=== PATIENT | female | born 1965 | race American Indian/Alaskan Native ===

== ENCOUNTER 2020-06-21 09:53 | Inpatient (IN) | payer BC ==
--- NOTE | 2020-06-21 10:08 | Event Note ---
ED Screening Note Date of service: 06/21/20 ED Screening Note: Patient referred from PCP due to hypoxia. The patient has had cough and shortness of breath for 2 weeks, tested for Covid but does not have results, no chest pain, fever, loss of taste or smell or other symptoms. O2 ranging from 92 to 95% at rest during my evaluation. This initial assessment/diagnostic orders/clinical plan/treatment(s) is/are subject to change based on patients health status, clinical progression and re- assessment by fellow clinical providers in the ED. Further treatment and workup at subsequent clinical providers discretion. Patient/guardian urged not to elope from the ED as their condition may be serious if not clinically assessed and managed. Initial orders include: Labs, EKG, chest x-ray
[2020-06-21 10:45] LABS: Basophils % (Auto) 0.5 % (0.0-1.8); Hematocrit 36.9 % (30.3-42.9); Hemoglobin 12.3 gm/dl (10.1-14.3); Lymphocytes % (Auto) 10.9 % (13.4-35.0); Mean Corpuscular HGB Conc 33 % (30-34); Mean Corpuscular Volume 82 fl (79-97); Monocytes # (Auto) 0.5 K/mm3 (0.0-0.8); Monocytes % (Auto) 5.1 % (0.0-7.3); Platelet Count 232 K/mm3 (140-440); Red Blood Count 4.52 M/mm3 (3.65-5.03); Red Cell Distribution Width 14.5 % (13.2-15.2)
--- NOTE | 2020-06-21 10:45 | XRay Report ---
CHEST 2 VIEWS INDICATION: sob. COMPARISON: 11/06/2015 FINDINGS: Support devices: None. Heart: Within normal limits. Lungs/pleura: Bibasilar airspace opacities are identified. The upper lung zones are clear. No pleura l effusion or pneumothorax. Additional findings: None. IMPRESSION: Bibasilar airspace opacities concerning for aspiration or atypical pneumonia. Signer Name: Cuco Goodman Jr, MD Signed: 06/21/2020 10:40 AM Workstation Name: [id number]
[2020-06-21 11:05] LABS: BUN/Creatinine Ratio 10; Blood Urea Nitrogen 8 mg/dL (7-17); Calcium 8.4 mg/dL (8.4-10.2); Hemolysis Index 4
--- NOTE | 2020-06-21 12:35 | Emergency Department Report ---
ED Shortness of Breath HPI - General Chief Complaint: Dyspnea/Respdistress Stated Complaint: OXYGEN LEVEL IS LOW Time Seen by Provider: 06/21/20 11:57 Source: patient Mode of arrival: Ambulatory Limitations: No Limitations - History of Present Illness Initial Comments: Chief complaint "I just cannot breathe." HPI: A 55-year-old female with history of hypertension and medication noncompliance who presents with severe shortness of breath for the last week. Her symptoms started off with "a bad cold". Patient had chills nonproductive cough body aches, loss of sense of taste and smell. All symptoms began last week. and son were both sick. 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 She denies recent travel.Last known COVID-19 exposure from coworker was in March. Malik carmichael was evaluated by PCP Dr. Ash Rice this morning. He performed COVID-19 test. He referred patient to the emergency department due to low oxygen level. Patient does not smoke tobacco. She does not use alcohol. Patient states that she does not take hypertension medication because she is "[address] headed". Family history includes both parents and sisters with hypertension. No known history of diabetes cardiac disease stroke in the family. Patient works for the department of [employer]. Complaint: shortness of breath, cough -: Gradual, week(s) (Over 1 week ago) Severity: severe Consistency: constant Improves With: rest Worsens With: exertion Known History Of: other (Untreated hypertension) Context: recent URI, other (Multiple sick contacts at home) Associated Symptoms: fever, cough, other (Body aches loss of taste loss of smell) - Related Data Home Medications Medication Instructions Recorded Confirmed Last Taken No Known Home Medications [No 06/21/20 06/21/20 Unknown Reported Home Medications] Allergies Allergy/AdvReac Type Severity Reaction Status Date / Time No Known Allergies Allergy Verified 06/21/20 12:35 ED Review of Systems ROS: Stated complaint: OXYGEN LEVEL IS LOW Other details as noted in HPI Comment: All other systems reviewed and negative Constitutional: chills, fever, malaise ENT: denies: throat pain Respiratory: cough, shortness of breath Cardiovascular: denies: chest pain Gastrointestinal: denies: abdominal pain, nausea, vomiting, diarrhea Musculoskeletal: myalgia Neurological: denies: headache ED Past Medical Hx - Past Medical History Previous Medical History?: Yes Hx Hypertension: Yes - Surgical History Past Surgical History?: No - Social History Smoking Status: Never Smoker Substance Use Type: None - Medications Home Medications: Home Medications Medication Instructions Recorded Confirmed Last Taken Type No Known Home Medications [No 06/21/20 06/21/20 Unknown History Reported Home Medications] ED Physical Exam - General Limitations: No Limitations General appearance: alert, in no apparent distress, other (Severe shortness of breath with effort with ambulating to treatment room. Patient only able to take 3 steps at a time before needing to rest.) - Head Head exam: Present: atraumatic, normocephalic - Eye Eye exam: Present: normal appearance - ENT ENT exam: Present: mucous membranes moist - Neck Neck exam: Present: normal inspection, full ROM - Respiratory Respiratory exam: Present: normal lung sounds bilaterally. Absent: respiratory distress, wheezes, rhonchi, stridor - Cardiovascular Cardiovascular Exam: Present: regular rate, normal rhythm, normal heart sounds. Absent: systolic murmur, diastolic murmur, rubs, gallop - GI/Abdominal GI/Abdominal exam: Present: soft, normal bowel sounds. Absent: distended, tenderness, guarding, rebound - Extremities Exam Extremities exam: Present: normal inspection - Neurological Exam Neurological exam: Present: alert, oriented X3 - Psychiatric Psychiatric exam: Present: normal affect, normal mood - Skin Skin exam: Present: warm, dry, intact, normal color. Absent: rash ED Course Vital Signs 06/21/20 06/21/20 06/21/20 10:07 12:12 12:13 Temperature 99.1 F Pulse Rate 101 H 83 Respiratory 24 26 H 18 Rate Blood Pressure 194/107 Blood Pressure 186/83 [Right] O2 Sat by Pulse 92 93 Oximetry 06/21/20 06/21/20 06/21/20 12:39 12:56 14:04 Temperature Pulse Rate 88 94 H 92 H Respiratory 28 H 28 H Rate Blood Pressure 167/97 Blood Pressure 181/105 173/115 [Right] O2 Sat by Pulse 95 97 Oximetry 06/21/20 14:56 Temperature Pulse Rate 96 H Respiratory 18 Rate Blood Pressure Blood Pressure 166/96 [Right] O2 Sat by Pulse 97 Oximetry ED Medical Decision Making - Lab Data Result diagrams: 06/21/20 10:15 06/21/20 10:15 - Radiology Data Radiology results: report reviewed, image reviewed CHEST 2 VIEWS INDICATION: sob. COMPARISON: 11/06/2015 FINDINGS: Support devices: None. Heart: Within normal limits. Lungs/pleura: Bibasilar airspace opacities are identified. The upper lung zones are clear. No pleural effusion or pneumothorax. Additional findings: None. IMPRESSION: Bibasilar airspace opacities concerning for aspiration or atypical pneumonia CTA CHEST WITH IV CONTRAST INDICATION: Hypoxia, elevated d-dimer. TECHNIQUE: Axial CT images were obtained through the chest after injection of 100 cc Omnipaque 350 IV contrast. 3 plane MIP reconstructions were produced. All CT scans at this location are performed using CT dose reduction for ALARA by means of automated exposure control. COMPARISON: 2 views of the chest from earlier today. FINDINGS: PULMONARY ARTERIES: No pulmonary emboli. AORTA AND ARTERIES: No significant abnormality. HEART: No significant abnormality. MEDIASTINUM: No significant abnormality. LUNGS: Bilateral ground glass opacities and consolida tions are seen with bilateral lower lobe predominance. No suspicious nodule or mass. No pneumothorax or pleural effusion. ADDITIONAL FINDINGS: None. UPPER ABDOMEN: No acute findings. BONES: No significant osseous abnormality. IMPRESSION: 1. No CT evidence for pulmonary embolism. 2. Bilateral pneumonia, possibly of viral etiology. Please correlate with the clinical findings. - Medical Decision Making Acute respiratory failure with significant hypoxia on exertion. Patient has mild hypoxia 90% at rest. Severe hypoxia with slow ambulation, oxygen saturation 82% on room air. I personally observed patient ambulating. She was only able to take 3 steps prior to needing a rest. Suspected COVID-19 infection: Differential diagnosis includes pulmonary embolism with elevated D-dimer, acute heart failure with history of severe hypertension untreated Hypertension addressed with p.o. medication amlodipine. Repeat blood pressure 166/82 after treatment. Critical care attestation.: If time is entered above; I have spent that time in minutes in the direct care of this critically ill patient, excluding procedure time. ED Disposition Clinical Impression: Acute respiratory failure with hypoxia, Hypertensive urgency, Suspected COVID- 19 virus infection, Multifocal pneumonia Disposition: OP ADMIT IP TO THIS HOSP Is pt being admited?: No Does the pt Need Aspirin: No Condition: Stable
[2020-06-21] MEDS ORDERED: amLODIPine 5 MG TAB PO ONE (12:52)
[2020-06-21] MEDS ORDERED: cefTRIAXone/NS 2 GM/100 ML 2 GM/100 ML BAG IV ONE (12:54)
[2020-06-21] MEDS ORDERED: AZITHROMYCIN/NS 500 MG/250 ML 500 MG/250 ML BAG IV ONE (12:54)
[2020-06-21] MEDS ORDERED: dexAMETHasone 20 MG/5 ML VIAL IV ONE (13:07)
--- NOTE | 2020-06-21 13:25 | History and Physical Report ---
History of Present Illness Chief complaint: I cannot breathe History of present illness: 55 YO Female with Obesity Hypoventilation Syndrome, HTN presents to ED for evaluation. Patient reports "I just cannot breathe". Patient states that she has experienced malaise, subjective fever, fatigue, body aches, loss of sense of smell, loss of sense of taste, nasal congestion over the past week with worsening symptoms over the same timeframe. Patient transported to [facility] via private vehicle for further care and evaluation of the aforementioned symptoms. The patient was seen and evaluated in the emergency department. All lab and imaging studies reviewed. The patient was found to have a pulse oximetry of 86% on room air with exertion which is consistent with acute hypoxemic respiratory failure. Chest x-ray revealed bilateral pneumonia. Patient admitted to medical floor and initiated on pneumonia protocol as well as coronavirus protocol. Patient denies chills, chest pain, palpitations, skin rash. Patient ack nowledges recent ill contacts with her and her son. Patient uncertain of her coronavirus exposure. No prior admission for review. No medication listed at time of admission for reconciliation. Past History Past Medical History: hypertension Past Surgical History: No surgical history, Other (Reviewed) Social history: , lives with family. denies: smoking, alcohol abuse Family history: diabetes, hypertension Medications and Allergies Allergies Allergy/AdvReac Type Severity Reaction Status Date / Time No Known Allergies Allergy Verified 06/21/20 12:35 Home Medications Medication Instructions Recorded Confirmed Last Taken Type No Known Home Medications [No 06/21/20 06/21/20 Unknown History Reported Home Medications] Active Meds: Active Medications Azithromycin (Zithromax/Ns) 500 mg in 250 mls @ 250 mls/hr IV ONCE ONE; Protocol Stop: 06/21/20 13:53 Review of Systems Constitutional: fever, fatigue, weakness, malaise Ears, nose, mouth and throat: no ear pain, no ear discharge, no tinnitis, no decreased hearing, no nose pain, no nasal congestion Breasts: no change in shape, no swelling Cardiovascular: shortness of breath, no orthopnea, no palpitations, no rapid/irregular heart beat Respiratory: shortness of breath, no excessive sputum, no pleurisy Gastrointestinal: no abdominal pain, no nausea, no vomiting, no diarrhea Genitourinary Female: no pelvic pain, no flank pain, no dysuria, no urinary frequency, no urgency Rectal: no pain, no incontinence, no bleeding Musculoskeletal: no neck stiffness, no neck pain, no arm numbness/tingling, no low back pain, no shooting leg pain, no leg numbness/tingling Integumentary: no rash, no pruritis, no redness, no sores, no wounds Neurological: no transient paralysis, no paralysis, no weakness, no parathesias, no numbness Psychiatric: no anxiety, no change in sleep habits, no insomnia, no change in appetite, no change in libido Endocrine: no cold intolerance, no polydipsia, no nocturia, no flushing Hematologic/Lymphatic: no easy bruising, no easy bleeding, no lymphedema Allergic/Immunologic: no urticaria, no allergic rhinitis, no anaphylaxis Exam - Constitutional Vitals: Temp Pulse Resp BP Pulse Ox 99.1 F 94 H 28 H 167/97 95 06/21/20 10:07 06/21/20 12:56 06/21/20 12:39 06/21/20 12:56 06/21/20 12:39 General appearance: Present: mild distress, obese - EENT Eyes: Present: PERRL ENT: hearing intact, clear oral mucosa - Neck Neck: Present: supple, normal ROM - Respiratory Respiratory effort: labored, accessory muscle use Respiratory: bilateral: diminished, rhonchi - Cardiovascular Heart Sounds: Present: S1 & S2. Absent: rub, click - Extremities Extremities: pulses symmetrical, No edema Peripheral Pulses: within normal limits - Abdominal General gastrointestinal: Present: soft, non-tender, non-distended, normal bowel sounds Female genitourinary: Present: normal - Integumentary Integumentary: Present: clear, warm, dry - Musculoskeletal Musculoskeletal: gait normal, strength equal bilaterally - Psychiatric Psychiatric: appropriate mood/affect, intact judgment & insight - Neurologic Neurologic: CNII-XII intact, moves all extremities Results - Labs CBC & Chem 7: 06/21/20 10:15 06/21/20 10:15 Labs: Abnormal lab results 06/21/20 06/21/20 06/21/20 Range/Units 10:15 10:15 11:49 MCH 27 L (28-32) pg Lymph % (Auto) 10.9 L (13.4-35.0) % Lymph # (Auto) 1.0 L (1.2-5.4) K/mm3 Seg Neutrophils % 83.5 H (40.0-70.0) % Seg Neutrophils # 8.1 H (1.8-7.7) K/mm3 D-Dimer 1264.70 H (0-234) ng/mlDDU Potassium 3.1 L (3.6-5.0) mmol/L Glucose 125 H (65-100) mg/dL Ferritin (10.0-200.0) ng/mL Lactate Dehydrogenase (91-180) units/L C-Reactive Protein 15.60 H (0.00-1.30) mg/dL 06/21/20 06/21/20 Range/Units 11:49 11:49 MCH (28-32) pg Lymph % (Auto) (13.4-35.0) % Lymph # (Auto) (1.2-5.4) K/mm3 Seg Neutrophils % (40.0-70.0) % Seg Neutrophils # (1.8-7.7) K/mm3 D-Dimer (0-234) ng/mlDDU Potassium (3.6-5.0) mmol/L Glucose (65-100) mg/dL Ferritin 1421.0 H (10.0-200.0) ng/mL Lactate Dehydrogenase 527 H (91-180) units/L C-Reactive Protein (0.00-1.30) mg/dL Assessment and Plan - Patient Problems (1) Acute respiratory failure with hypoxia Current Visit: Yes Status: Acute Plan to address problem: Supplemental oxygen, pulse oximetry, nebulizer therapy, chest x-ray, pulmonary toilet. (2) Pneumonia Current Visit: Yes Status: Acute Plan to address problem: Pneumonia protocol: Chest x-ray, CBC, BMP, IV antibiotic therapy, supplemental oxygen, nebulizer therapy, pulse oximetry, blood culture. (3) Suspected COVID-19 virus infection Current Visit: Yes Status: Acute Plan to address problem: Coronavirus protocol: Contact precautions, isolation precautions, IV steroid therapy, IV antibiotic therapy, prone positioning while in bed, pulmonary toilet. (4) Obesity hypoventilation syndrome Current Visit: Yes Status: Acute Plan to address problem: Balanced diet, increase physical activity at discharge, outpatient pulmonary follow-up for sleep study. (5) Hypertensive urgency Current Visit: Yes Status: Acute Plan to address problem: Monitor blood pressure every shift, continue medical management, IV hydralazine every 6 hours as needed for systolic blood pressure greater than 165. (6) DVT prophylaxis Current Visit: Yes Status: Acute Plan to address problem: SCDs bilateral lower extremities while in bed, prophylactic anticoagulation.
[2020-06-21] MEDS ORDERED: ACETAMINOPHEN 325 MG TAB PO PRN (13:26)
[2020-06-21] MEDS ORDERED: ONDANSETRON 4 MG/2 ML INJ IV PRN (13:26)
[2020-06-21] MEDS ORDERED: ALBUTEROL 2.5 MG/3 ML NEBU IH PRN (13:26)
--- NOTE | 2020-06-21 14:06 | Cat Scan Report ---
CTA CHEST WITH IV CONTRAST INDICATION: Hypoxia, elevated d-dimer. TECHNIQUE: Axial CT images were obtained through the chest after injection of 100 cc Omnipaque 350 IV contrast. 3 plane MIP reconstructions were produced. All CT scans at this location are performed using CT dose reduction for ALARA by means of automated exposure control. COMPARISON: 2 views of the chest from earlier today. FINDINGS: PULMONARY ARTERIES: No pulmonary emboli. AORTA AND ARTERIES: No significant abnormality. HEART: No significant abnormality. MEDIASTINUM: No significant abnormality. LUNGS: Bilateral ground glass opacities and consolidations are seen with bilateral lower lobe predomi nance. No suspicious nodule or mass. No pneumothorax or pleural effusion. ADDITIONAL FINDINGS: None. UPPER ABDOMEN: No acute findings. BONES: No significant osseous abnormality. IMPRESSION: 1. No CT evidence for pulmonary embolism. 2. Bilateral pneumonia, possibly of viral etiology. Please correlate with the clinical findings. Signer Name: Eleuterio Murcia MD Signed: 06/21/2020 2:01 PM Workstation Name: [id number]
[2020-06-21] MEDS: CHOLECALCIFEROL (VIT D3) 1000 UNIT (25 mcg) TAB PO SCH (16:00)
--- NOTE | 2020-06-21 16:57 | Consultation ---
History of Present Illness - Reason for Consult Consult date: 06/21/20 - History of Present Illness 55-year-old female past medical history obesity, hypertension brought to the hospital with shortness of breath. She also complains of associated malaise, fevers, fatigue, myalgias, dysgeusia and anosmia. This began approximate 1 week prior to admission and has been worsening since onset. She is found to hypoxic to 86% on room air on admission she is unsure if she has had any specific Covid exposures, however she notes her and son have been ill recently. Afebrile with a normal white count. Renal function normal. Procalcitonin normal. Currently on ceftriaxone and azithromycin. No cultures were reviewed. Covid testing pending. Imaging personally reviewed: Chest CTA: No pulmonary embolism, bilateral pneumonia. Review of systems: Deferred due to PPE conservation strategy. Past History Past Medical History: hypertension Past Surgical History: No surgical history, Other (Reviewed) Social history: , lives with family. denies: smoking, alcohol abuse Family history: diabetes, hypertension Medications and Allergies Allergies Allergy/AdvReac Type Severity Reaction Status Date / Time No Known Allergies Allergy Verified 06/21/20 12:35 Home Medications Medication Instructions Recorded Confirmed Last Taken Type No Known Home Medications [No 06/21/20 06/21/20 Unknown History Reported Home Medications] Active Meds: Active Medications Acetaminophen (Acetaminophen 325 Mg Tab) 650 mg PO Q4H PRN PRN Reason: Pain MILD(1-3)/Fever >100.5/SMITH Albuterol (Albuterol 2.5 Mg/3 Ml Nebu) 2.5 mg IH Q4HRT PRN PRN Reason: Shortness Of Breath Amlodipine Besylate (Aml[facility]ipine 10 Mg Tab) [facility] Ascorbic Acid (Ascorbic Acid 500 Mg Tab) 500 mg PO BID BROOKS Cholecalciferol (Cholecalciferol (Vit D3) 1000 Unit (25 Mcg) Tab) 1,000 unit PO QDAY [facility] Last Admin: 06/21/20 16:00 Dose: 1,000 unit Documented by: Famotidine (Famotidine 10 Mg Tab) 10 mg PO BID BROOKS Heparin Sodium (Porcine) (Heparin 5,000 Unit/1 Ml Vial) 5,000 unit SUB-Q Q12HR BROOKS Hydralazine HCl (Hydralazine 20 Mg/1 Ml Inj) 10 mg IV Q8H PRN PRN Reason: Hypertension Hydrochlorothiazide (Hydrochlorothiazide 12.5 Mg Cap) 12.5 mg PO QDAY [facility]OO[facility] Ceftriaxone Sodium (Rocephin/Ns 2 Gm/100 Ml) 2 gm in 100 mls @ 200 mls/hr IV Q24HR BROOKS; Protocol Azithromycin (Zithromax/Ns) 500 mg in 250 mls @ 250 mls/hr IV Q24HR BROOKS; Protocol Stop: 06/25/20 10:59 Methylprednisolone Sodium Succinate (Methylprednisolone Sod Succinate 40 Mg/1 Ml Inj) 40 mg IV Q8HR BROOKS Ondansetron HCl (Ondansetron 4 Mg/2 Ml Inj) 4 mg IV Q8H PRN PRN Reason: Nausea And Vomiting Sodium Chloride (Sodium Chloride 0.9% 10 Ml Flush Syringe) 10 ml IV BID BROOKS Sodium Chloride (Sodium Chloride 0.9% 10 Ml Flush Syringe) 10 ml IV PRN PRN PRN Reason: LINE FLUSH Zinc Sulfate (Zinc Sulfate 220 Mg Cap) 220 mg PO BID BROOKS Physical Examination - Physical Exam Narrative exam: Physical exam deferred due to PPE conservation strategy. Please refer to primary team's note. - Constitutional Vitals: Vital Signs Temp Pulse Resp BP Pulse Ox 99.1 F 96 H 18 166/96 97 06/21/20 10:07 06/21/20 14:56 06/21/20 14:56 06/21/20 14:56 06/21/20 14:56 Temperature -Last 24 Hours Temperature 99.1 F Results - Labs CBC & Chem 7: 06/21/20 10:15 06/21/20 10:15 Labs: Abnormal lab results 06/21/20 06/21/20 06/21/20 Range/Units 10:15 10:15 11:49 MCH 27 L (28-32) pg Lymph % (Auto) 10.9 L (13.4-35.0) % Lymph # (Auto) 1.0 L (1.2-5.4) K/mm3 Seg Neutrophils % 83.5 H (40.0-70.0) % Seg Neutrophils # 8.1 H (1.8-7.7) K/mm3 D-Dimer 1264.70 H (0-234) ng/mlDDU Potassium 3.1 L (3.6-5.0) mmol/L Glucose 125 H (65-100) mg/dL Ferritin (10.0-200.0) ng/mL Lactate Dehydrogenase (91-180) units/L C-Reactive Protein 15.60 H (0.00-1.30) mg/dL 06/21/20 06/21/20 Range/Units 11:49 11:49 MCH (28-32) pg Lymph % (Auto) (13.4-35.0) % Lymph # (Auto) (1.2-5.4) K/mm3 Seg Neutrophils % (40.0-70.0) % Seg Neutrophils # (1.8-7.7) K/mm3 D-Dimer (0-234) ng/mlDDU Potassium (3.6-5.0) mmol/L Glucose (65-100) mg/dL Ferritin 1421.0 H (10.0-200.0) ng/mL Lactate Dehydrogenase 527 H (91-180) units/L C-Reactive Protein (0.00-1.30) mg/dL Assessment and Plan Cultures: COVID-19 pending A/P: 55-year-old female past medical history obesity, hypertension admitted as Covid PUI with bilateral pneumonia. #Acute hypoxic respiratory failure: 86% on room air on admission. Likely secondary bilateral pneumonia. #Bilateral pneumonia: Possible Covid, awaiting testing. Normal procalcitonin. #Obesity Recs: -Follow-up Covid PCR -If Covid positive and hypoxic and requiring oxygen recommend dexamethasone and remdesivir. -Stopped empiric antibiotics and normal procalcitonin. -Anticoagulation per hospital protocol Thank you for the consult, we will continue to follow. MD Kevyn Romano [facility] O: [phone] F: [phone]
[2020-06-21] MEDS: methylPREDNISolone Sod Succinate 40 MG/1 ML INJ IV SCH (22:10)
[2020-06-21] MEDS: ZINC SULFATE 220 MG CAP PO SCH (22:11)
[2020-06-21] MEDS: HEPARIN 5,000 UNIT/1 ML VIAL SUB-Q SCH (22:11)
[2020-06-21] MEDS: ASCORBIC ACID 500 MG TAB PO SCH (22:11)
[2020-06-21] MEDS: FAMOTIDINE 10 MG TAB PO SCH (22:13)
[2020-06-22] MEDS: methylPREDNISolone Sod Succinate 40 MG/1 ML INJ IV SCH ×3 (05:47→21:43)
[2020-06-22 06:24] LABS: Basophils % (Auto) 0.3 % (0.0-1.8); Hematocrit 36.4 % (30.3-42.9); Lymphocytes # (Auto) 0.6 K/mm3 (1.2-5.4); Lymphocytes % (Auto) 8.9 % (13.4-35.0); Mean Corpuscular HGB Conc 33 % (30-34); Mean Corpuscular Volume 83 fl (79-97); Monocytes # (Auto) 0.3 K/mm3 (0.0-0.8); Monocytes % (Auto) 4.5 % (0.0-7.3); Platelet Count 262 K/mm3 (140-440); Red Cell Distribution Width 14.3 % (13.2-15.2)
[2020-06-22 06:53] LABS: BUN/Creatinine Ratio 15; Blood Urea Nitrogen 12 mg/dL (7-17); Calcium 8.9 mg/dL (8.4-10.2); Hemolysis Index 0
--- NOTE | 2020-06-22 09:02 | Progress Note ---
Assessment and Plan Assessment and plan: 55-year-old female past medical history obesity, hypertension admitted as Covid PUI with bilateral pneumonia. Acute hypoxic respiratory failure. Patient was noted to have saturation of 86% on room air on admission. Etiology secondary to bilateral pneumonia. Bilateral pneumonia. Covid PCR pending Obesity. 06/22/2020. Follow-up Covid PCR. If Covid positive and hypoxic, we will start dexamethasone and remdesivir. ID consulted and stopped empiric antibiotics given normal procalcitonin. Trend inflammatory markers as needed. History Interval history: 5-year-old female past medical history obesity, hypertension brought to the hospital with shortness of breath. She also complains of associated malaise, fevers, fatigue, myalgias, dysgeusia and anosmia. This began approximate 1 week prior to admission and has been worsening since onset. She is found to hypoxic to 86% on room air on admission she is unsure if she has had any specific Covid exposures, however she notes her and son have been ill recently. Afebrile with a normal white count. Renal function normal. Procalcitonin normal. Currently on ceftriaxone and azithromycin. No cultures were reviewed. Covid testing pending. Imaging personally reviewed: Chest CTA: No pulmonary embolism, bilateral pneumonia. Hospitalist Physical - Constitutional Vitals: Temp Pulse Resp BP Pulse Ox 98.0 F 86 18 136/82 95 06/22/20 05:54 06/22/20 05:54 06/22/20 05:54 06/22/20 05:54 06/22/20 05:54 General appearance: Present: mild distress, obese - EENT Eyes: Present: PERRL, EOM intact ENT: hearing intact, clear oral mucosa, dentition normal - Neck Neck: Present: supple, normal ROM - Respiratory Respiratory effort: normal Respiratory: bilateral: CTA - Cardiovascular Rhythm: regular Heart Sounds: Present: S1 & S2. Absent: gallop, rub - Extremities Extremities: no ischemia, No edema, Full ROM - Abdominal General gastrointestinal: soft, non-tender, non-distended, normal bowel sounds - Integumentary Integumentary: Present: clear, warm, dry - Neurologic Neurologic: CNII-XII intact, moves all extremities Results - Labs CBC & Chem 7: 06/22/20 05:48 06/22/20 05:48 Labs: Laboratory Last Values WBC 6.9 K/mm3 (4.5-11.0) 06/22/20 05:48 RBC 4.40 M/mm3 (3.65-5.03) 06/22/20 05:48 Hgb 12.0 gm/dl (10.1-14.3) 06/22/20 05:48 Hct 36.4 % (30.3-42.9) 06/22/20 05:48 MCV 83 fl (79-97) 06/22/20 05:48 MCH 27 pg (28-32) L 06/22/20 05:48 MCHC 33 % (30-34) 06/22/20 05:48 RDW 14.3 % (13.2-15.2) 06/22/20 05:48 Plt Count 262 K/mm3 (140-440) 06/22/20 05:48 Lymph % (Auto) 8.9 % (13.4-35.0) L 06/22/20 05:48 [place] % (Auto) 4.5 % (0.0-7.3) 06/22/20 05:48 Eos % (Auto) 0.0 % (0.0-4.3) 06/22/20 05:48 Baso % (Auto) 0.3 % (0.0-1.8) 06/22/20 05:48 Lymph # (Auto) 0.6 K/mm3 (1.2-5.4) L 06/22/20 05:48 [place] # (Auto) 0.3 K/mm3 (0.0-0.8) 06/22/20 05:48 Eos # (Auto) 0.0 K/mm3 (0.0-0.4) 06/22/20 05:48 Baso # (Auto) 0.0 K/mm3 (0.0-0.1) 06/22/20 05:48 Seg Neutrophils % 86.3 % (40.0-70.0) H 06/22/20 05:48 Seg Neutrophils # 5.9 K/mm3 (1.8-7.7) 06/22/20 05:48 D-Dimer 1264.70 ng/mlDDU (0-234) H 06/21/20 11:49 Sodium 141 mmol/L (137-145) 06/22/20 05:48 Potassium 3.7 mmol/L (3.6-5.0) 06/22/20 05:48 Chloride 102.0 mmol/L (98-107) 06/22/20 05:48 Carbon Dioxide 29 mmol/L (22-30) 06/22/20 05:48 Anion Gap 14 mmol/L 06/22/20 05:48 BUN 12 mg/dL (7-17) 06/22/20 05:48 Creatinine 0.8 mg/dL (0.6-1.2) 06/22/20 05:48 Estimated GFR > 60 ml/min 06/22/20 05:48 BUN/Creatinine Ratio 15 % 06/22/20 05:48 Glucose 246 mg/dL (65-100) H 06/22/20 05:48 Calcium 8.9 mg/dL (8.4-10.2) 06/22/20 05:48 Ferritin 1421.0 ng/mL (10.0-200.0) H 06/21/20 11:49 Lactate Dehydrogenase 527 units/L (91-180) H 06/21/20 11:49 C-Reactive Protein 15.60 mg/dL (0.00-1.30) H 06/21/20 10:15 NT-Pro-B Natriuret Pep 164.0 pg/mL (0-900) 06/21/20 12:16 Procalcitonin 0.08 ng/mL (<0.15) 06/21/20 11:49 Madden/IV: Voiding Method Toilet Active Medications - Current Medications Current Medications: Generic Name Dose Route Start Last Admin Trade Name Freq PRN Reason Stop Dose Admin Acetaminophen 650 mg 06/21/20 13:26 Acetaminophen 325 Mg Tab PO Q4H PRN Pain MILD(1-3)/Fever >100.5/SMITH Albuterol 2.5 mg 06/21/20 13:26 Albuterol 2.5 Mg/3 Ml Nebu IH Q4HRT PRN Shortness Of Breath Amlodipine Besylate 10 mg 06/22/20 10:00 Amlodipine 10 Mg Tab PO QDAY BROOKS Ascorbic Acid 500 mg 06/21/20 22:00 06/21/20 22:11 Ascorbic Acid 500 Mg Tab PO 500 mg BID BROOKS Administration Cholecalciferol 1,000 unit 06/21/20 15:00 06/21/20 16:00 Cholecalciferol (Vit D3) 1000 Unit (25 Mcg) Tab PO 1,000 unit QDAY BROOKS Administration Famotidine 10 mg 06/21/20 22:00 06/21/20 22:13 Famotidine 10 Mg Tab PO 10 mg BID BROOKS Administration Heparin Sodium (Porcine) 5,000 unit 06/21/20 22:00 06/21/20 22:11 Heparin 5,000 Unit/1 Ml Vial SUB-Q 5,000 unit Q12HR BROOKS Administration Hydralazine HCl 10 mg 06/21/20 17:00 Hydralazine 20 Mg/1 Ml Inj IV Q8H PRN Hypertension Hydrochlorothiazide 12.5 mg 06/22/20 10:00 Hydrochlorothiazide 12.5 Mg Cap PO QDAY BROOKS Methylprednisolone Sodium Succinate 40 mg 06/21/20 22:00 06/22/20 05:47 Methylprednisolone Sod Succinate 40 Mg/1 Ml Inj IV 40 mg Q8HR BROOKS Administration Ondansetron HCl 4 mg 06/21/20 13:26 Ondansetron 4 Mg/2 Ml Inj IV Q8H PRN Nausea And Vomiting Sodium Chloride 10 ml 06/21/20 22:00 06/21/20 22:11 Sodium Chloride 0.9% 10 Ml Flush Syringe IV 10 ml BID BROOKS Administration Sodium Chloride 10 ml 06/21/20 13:26 Sodium Chloride 0.9% 10 Ml Flush Syringe IV PRN PRN LINE FLUSH Zinc Sulfate 220 mg 06/21/20 22:00 06/21/20 22:11 Zinc Sulfate 220 Mg Cap PO 220 mg BID BROOKS Administration
[2020-06-22] MEDS: amLODIPine 10 MG TAB PO SCH (09:04)
[2020-06-22] MEDS: FAMOTIDINE 10 MG TAB PO SCH ×2 (09:04→21:43)
[2020-06-22] MEDS: CHOLECALCIFEROL (VIT D3) 1000 UNIT (25 mcg) TAB PO SCH (09:04)
[2020-06-22] MEDS: HEPARIN 5,000 UNIT/1 ML VIAL SUB-Q SCH ×2 (09:04→21:42)
[2020-06-22] MEDS: ASCORBIC ACID 500 MG TAB PO SCH ×2 (09:05→21:43)
[2020-06-22] MEDS: hydroCHLOROthiazide 12.5 MG CAP PO SCH (09:05)
[2020-06-22] MEDS: ZINC SULFATE 220 MG CAP PO SCH ×2 (09:05→21:43)
[2020-06-22] MEDS ORDERED: cefTRIAXone/NS 2 GM/100 ML 2 GM/100 ML BAG IV SCH (10:00)
[2020-06-22] MEDS ORDERED: AZITHROMYCIN/NS 500 MG/250 ML 500 MG/250 ML BAG IV SCH (10:00)
[2020-06-22] MEDS ORDERED: LIP THERAPY VASELINE TP PRN (12:29)
[2020-06-22] MEDS: hydrALAZINE 20 MG/1 ML INJ IV PRN (13:09)
[2020-06-23] MEDS: methylPREDNISolone Sod Succinate 40 MG/1 ML INJ IV SCH (05:37)
[2020-06-23] MEDS ORDERED: REMDESIVIR 200 MG in SODIUM CHLORIDE 0.9% 250ML 250 ML IV ONE ×2 (08:33→16:00)
--- NOTE | 2020-06-23 08:46 | Progress Note ---
Assessment and Plan Assessment and plan: 55-year-old female past medical history obesity, hypertension admitted as Covid PUI with bilateral pneumonia. Acute hypoxic respiratory failure. Patient was noted to have saturation of 86% on room air on admission. Etiology secondary to bilateral pneumonia. Bilateral pneumonia. Covid PCR pending Obesity. 06/22/2020. Follow-up Covid PCR. If Covid positive and hypoxic, we will start dexamethasone and remdesivir. ID consulted and stopped empiric antibiotics given normal procalcitonin. Trend inflammatory markers as needed. 06/23/2020. Covid PCR positive on 06/21/2020. Continue dexamethasone. Patient not hypoxic so holding on remdesivir. Empiric antibiotics discontinued because of normal procalcitonin. Check exercise pulse oximetry today. Anticoagulation per protocol. History Interval history: 55-year-old female past medical history obesity, hypertension brought to the hospital with shortness of breath. She also complains of associated malaise, fevers, fatigue, myalgias, dysgeusia and anosmia. This began approximate 1 week prior to admission and has been worsening since onset. She is found to hypoxic to 86% on room air on admission she is unsure if she has had any specific Covid exposures, however she notes her and son have been ill recently. Afebrile with a normal white count. Renal function normal. Procalcitonin normal. Currently on ceftriaxone and azithromycin. No cultures were reviewed. Covid testing pending. Imaging personally reviewed: Chest CTA: No pulmonary embolism, bilateral pneumonia. Hospitalist Physical - Constitutional Vitals: Temp Pulse Resp BP Pulse Ox 98.5 F 83 20 146/90 96 06/23/20 04:50 06/23/20 04:50 06/23/20 04:50 06/23/20 04:50 06/23/20 08:02 General appearance: Present: mild distress, obese - EENT Eyes: Present: PERRL, EOM intact ENT: hearing intact, clear oral mucosa, dentition normal - Neck Neck: Present: supple, normal ROM - Respiratory Respiratory effort: normal Respiratory: bilateral: CTA - Cardiovascular Rhythm: regular Heart Sounds: Present: S1 & S2. Absent: gallop, rub - Extremities Extremities: no ischemia, No edema, Full ROM - Abdominal General gastrointestinal: soft, non-tender, non-distended, normal bowel sounds - Integumentary Integumentary: Present: clear, warm, dry - Neurologic Neurologic: CNII-XII intact, moves all extremities Results - Labs CBC & Chem 7: 06/22/20 05:48 06/22/20 05:48 Labs: Laboratory Last Values WBC 6.9 K/mm3 (4.5-11.0) 06/22/20 05:48 RBC 4.40 M/mm3 (3.65-5.03) 06/22/20 05:48 Hgb 12.0 gm/dl (10.1-14.3) 06/22/20 05:48 Hct 36.4 % (30.3-42.9) 06/22/20 05:48 MCV 83 fl (79-97) 06/22/20 05:48 MCH 27 pg (28-32) L 06/22/20 05:48 MCHC 33 % (30-34) 06/22/20 05:48 RDW 14.3 % (13.2-15.2) 06/22/20 05:48 Plt Count 262 K/mm3 (140-440) 06/22/20 05:48 Lymph % (Auto) 8.9 % (13.4-35.0) L 06/22/20 05:48 [place] % (Auto) 4.5 % (0.0-7.3) 06/22/20 05:48 Eos % (Auto) 0.0 % (0.0-4.3) 06/22/20 05:48 Baso % (Auto) 0.3 % (0.0-1.8) 06/22/20 05:48 Lymph # (Auto) 0.6 K/mm3 (1.2-5.4) L 06/22/20 05:48 [place] # (Auto) 0.3 K/mm3 (0.0-0.8) 06/22/20 05:48 Eos # (Auto) 0.0 K/mm3 (0.0-0.4) 06/22/20 05:48 Baso # (Auto) 0.0 K/mm3 (0.0-0.1) 06/22/20 05:48 Seg Neutrophils % 86.3 % (40.0-70.0) H 06/22/20 05:48 Seg Neutrophils # 5.9 K/mm3 (1.8-7.7) 06/22/20 05:48 D-Dimer 1264.70 ng/mlDDU (0-234) H 06/21/20 11:49 Sodium 141 mmol/L (137-145) 06/22/20 05:48 Potassium 3.7 mmol/L (3.6-5.0) 06/22/20 05:48 Chloride 102.0 mmol/L (98-107) 06/22/20 05:48 Carbon Dioxide 29 mmol/L (22-30) 06/22/20 05:48 Anion Gap 14 mmol/L 06/22/20 05:48 BUN 12 mg/dL (7-17) 06/22/20 05:48 Creatinine 0.8 mg/dL (0.6-1.2) 06/22/20 05:48 Estimated GFR > 60 ml/min 06/22/20 05:48 BUN/Creatinine Ratio 15 % 06/22/20 05:48 Glucose 246 mg/dL (65-100) H 06/22/20 05:48 Calcium 8.9 mg/dL (8.4-10.2) 06/22/20 05:48 Ferritin 1421.0 ng/mL (10.0-200.0) H 06/21/20 11:49 Lactate Dehydrogenase 527 units/L (91-180) H 06/21/20 11:49 C-Reactive Protein 15.60 mg/dL (0.00-1.30) H 06/21/20 10:15 NT-Pro-B Natriuret Pep 164.0 pg/mL (0-900) 06/21/20 12:16 Procalcitonin 0.08 ng/mL (<0.15) 06/21/20 11:49 Coronavirus (PCR) Positive (Negative) A 06/22/20 Unknown Madden/IV: Voiding Method Toilet Active Medications - Current Medications Current Medications: Generic Name Dose Route Start Last Admin Trade Name Freq PRN Reason Stop Dose Admin Acetaminophen 650 mg 06/21/20 13:26 Acetaminophen 325 Mg Tab PO Q4H PRN Pain MILD(1-3)/Fever >100.5/SMITH Albuterol 2.5 mg 06/21/20 13:26 Albuterol 2.5 Mg/3 Ml Nebu IH Q4HRT PRN Shortness Of Breath Amlodipine Besylate 10 mg 06/22/20 10:00 06/22/20 09:04 Amlodipine 10 Mg Tab PO 10 mg QDAY BROOKS Administration Ascorbic Acid 500 mg 06/21/20 22:00 06/22/20 21:43 Ascorbic Acid 500 Mg Tab PO 500 mg BID BROOKS Administration Cholecalciferol 1,000 unit 06/21/20 15:00 06/22/20 09:04 Cholecalciferol (Vit D3) 1000 Unit (25 Mcg) Tab PO 1,000 unit QDAY BROOKS Administration Dexamethasone 6 mg 06/23/20 10:00 Dexamethasone 4 Mg Tab PO 07/01/20 10:59 DAILY BROOKS Famotidine 10 mg 06/21/20 22:00 06/22/20 21:43 Famotidine 10 Mg Tab PO 10 mg BID BROOKS Administration Heparin Sodium (Porcine) 5,000 unit 06/21/20 22:00 06/22/20 21:42 Heparin 5,000 Unit/1 Ml Vial SUB-Q 5,000 unit Q12HR BROOKS Administration Hydralazine HCl 10 mg 06/21/20 17:00 06/22/20 13:09 Hydralazine 20 Mg/1 Ml Inj IV 10 mg Q8H PRN Administration Hypertension Hydrochlorothiazide 12.5 mg 06/22/20 10:00 06/22/20 09:05 Hydrochlorothiazide 12.5 Mg Cap PO 12.5 mg QDAY BROOKS Administration Hydrophilic Ointment 1 applic 06/22/20 12:29 Lip Therapy Vaseline TP DIRECT PRN Dry Lips REMDESIVIR 200 mg/ Sodium 250 mls @ 500 mls/hr 06/23/20 08:33 Chloride IV 06/23/20 09:02 ONCE ONE REMDESIVIR 100 mg/ Sodium 250 mls @ 500 mls/hr 06/24/20 21:00 Chloride IV 06/27/20 21:29 Q24HR@2100 BROOKS Ondansetron HCl 4 mg 06/21/20 13:26 Ondansetron 4 Mg/2 Ml Inj IV Q8H PRN Nausea And Vomiting Sodium Chloride 10 ml 06/21/20 22:00 06/22/20 21:44 Sodium Chloride 0.9% 10 Ml Flush Syringe IV 10 ml BID BROOKS Administration Sodium Chloride 10 ml 06/21/20 13:26 Sodium Chloride 0.9% 10 Ml Flush Syringe IV PRN PRN LINE FLUSH Sodium Chloride 50 ml 06/23/20 21:00 Sodium Chloride 0.9% 50 Ml Ivpb IV 06/27/20 21:01 Q24HR@2100 BROOKS Zinc Sulfate 220 mg 06/21/20 22:00 06/22/20 21:43 Zinc Sulfate 220 Mg Cap PO 220 mg BID BROOKS Administration Nutrition/Malnutrition Assess - Dietary Evaluation Nutrition/Malnutrition Findings: Nutrition Notes Start: 06/22/20 10:38 Freq: Status: Active Protocol: Document 06/22/20 10:38 LM (Rec: 06/22/20 10:44 LM [id number]) Nutrition Notes Need for Assessment generated from: MST Initial or Follow up Brief Note Usual Body Weight 90 kg Subjective/Other Information RN screen for MST and Skin risk. Ismael score is 20. Pt stated she is eating well with a good appetite. 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 Pt reported UBW od 198 lb. Food preferences updated. Burn Absent Trauma Absent GI Symptoms None Current % PO Good (75-100%) Minimum of two criteria No Energy Intake (non-severe) <75% Estimated Energy Requirement >7 days Nutrition Intervention Revisit per MD consult or patient Sign Off request:
[2020-06-23] MEDS: DEXAMETHASONE 4 MG TAB PO SCH (08:59)
[2020-06-23] MEDS: ASCORBIC ACID 500 MG TAB PO SCH ×2 (08:59→21:15)
[2020-06-23] MEDS: FAMOTIDINE 10 MG TAB PO SCH ×2 (08:59→21:15)
[2020-06-23] MEDS: HEPARIN 5,000 UNIT/1 ML VIAL SUB-Q SCH ×2 (08:59→21:15)
[2020-06-23] MEDS: amLODIPine 10 MG TAB PO SCH (08:59)
[2020-06-23] MEDS: ZINC SULFATE 220 MG CAP PO SCH ×2 (08:59→21:15)
[2020-06-23] MEDS: CHOLECALCIFEROL (VIT D3) 1000 UNIT (25 mcg) TAB PO SCH (08:59)
[2020-06-23] MEDS: hydroCHLOROthiazide 12.5 MG CAP PO SCH (09:05)
[2020-06-23 09:31] LABS: Alanine Aminotransferase 144 units/L (7-56); Albumin 3.6 g/dL (3.9-5); BUN/Creatinine Ratio 21; Blood Urea Nitrogen 17 mg/dL (7-17); Hemolysis Index 0
[2020-06-23] MEDS ORDERED: dexAMETHasone 4 MG/ML VIAL IV SCH (10:00)
--- NOTE | 2020-06-23 14:42 | Progress Note ---
Assessment and Plan Cultures: SARS CoV2 PCR: Positive A/P: 55-year-old female with hypertension : #Bilateral pneumonia: Secondary to COVID-19. CTA negative for PE, showed bilateral pneumonia. Labs revealed normal WBC, ferritin 1421, CRP 15.6, LDH 527, procalcitonin 0.08. #Acute hypoxic respiratory failure: On supplemental oxygen. Recs: -continue IV/PO Dexamethasone 6 mg daily x 10 days -IV remdesivir ordered -prophylactic anticoagulation based on d-dimer per hospital protocol -trend ferritin, LDH, d-dimer, CRP every 2-3 days for risk stratification and to assess disease progression Eulalia Murray MD, FACP [facility] ([facility] O: [phone] F: [phone] Subjective Date of service: 06/23/20 Interval history: Afebrile. On oxygen by nasal cannula. Labs revealed normal WBC, ferritin 1421, CRP 15.6, LDH 527, procalcitonin 0.08 Objective - Exam Narrative Exam: Physical Exam (reviewed in chart to minimize risk of transmission) Constitutional: deferred Head, Ears, Nose: deferred Eyes: deferred Neck: deferred Oral: deferred Cardiovascular: deferred Respiratory: deferred GI: deferred Musculoskeletal: deferred Skin: deferred Hem/Lymphatic: deferred Psych: deferred Neurological: deferred - Constitutional Vitals: Vital Signs Temp Pulse Resp BP Pulse Ox 98.6 F 93 H 20 154/93 93 06/23/20 11:29 06/23/20 11:29 06/23/20 11:29 06/23/20 11:29 06/23/20 11:29 Temperature -Last 24 Hours Temperature 98.6 F Temperature 98.5 F Temperature 98.2 F Temperature 98.1 F - Labs CBC & Chem 7: 06/22/20 05:48 06/23/20 08:49 Labs: Abnormal lab results 06/23/20 06/23/20 06/23/20 Range/Units 08:49 08:49 08:49 D-Dimer 855.67 H (0-234) ng/mlDDU Potassium 3.5 L (3.6-5.0) mmol/L Glucose 240 H (65-100) mg/dL Ferritin 1505.0 H (10.0-200.0) ng/mL AST 87 H (5-40) units/L ALT 144 H (7-56) units/L Lactate Dehydrogenase (91-180) units/L C-Reactive Protein (0.00-1.30) mg/dL Albumin 3.6 L (3.9-5) g/dL 06/23/20 Range/Units 08:49 D-Dimer (0-234) ng/mlDDU Potassium (3.6-5.0) mmol/L Glucose (65-100) mg/dL Ferritin (10.0-200.0) ng/mL AST (5-40) units/L ALT (7-56) units/L Lactate Dehydrogenase 422 H (91-180) units/L C-Reactive Protein 6.00 H (0.00-1.30) mg/dL Albumin (3.9-5) g/dL
[2020-06-23] MEDS ORDERED: REMDESIVIR 100 MG VIAL IV ONE (16:00)
[2020-06-23] MEDS: SODIUM CHLORIDE 0.9% 50 ML IVPB IV SCH (17:04)
[2020-06-23] MEDS: hydrALAZINE 20 MG/1 ML INJ IV PRN ×2 (17:29→22:03)
[2020-06-23] MEDS ORDERED: SODIUM CHLORIDE 0.9% 50 ML IVPB IV SCH (21:00)
--- NOTE | 2020-06-24 07:42 | Progress Note ---
Assessment and Plan Assessment and plan: 55-year-old female past medical history obesity, hypertension admitted as Covid PUI with bilateral pneumonia. Acute hypoxic respiratory failure. Patient was noted to have saturation of 86% on room air on admission. Etiology secondary to bilateral pneumonia. Bilateral pneumonia. Covid PCR pending Obesity. 06/22/2020. Follow-up Covid PCR. If Covid positive and hypoxic, we will start dexamethasone and remdesivir. ID consulted and stopped empiric antibiotics given normal procalcitonin. Trend inflammatory markers as needed. 06/23/2020. Covid PCR positive on 06/21/2020. Continue dexamethasone. Patient not hypoxic so holding on remdesivir. Empiric antibiotics discontinued because of normal procalcitonin. Check exercise pulse oximetry today. Anticoagulation per protocol. 06/24/2020. Continue dexamethasone and consider adding remdesivir per ID. Patient does exhibit mild hypoxia with exercise pulse oximetry. All markers show improvement except ferritin. Continue to trend inflammatory markers of ferritin, LDH, D-dimer and CRP. CTA negative for PE. History Interval history: 55-year-old female past medical history obesity, hypertension brought to the hospital with shortness of breath. She also complains of associated malaise, fevers, fatigue, myalgias, dysgeusia and anosmia. This began approximate 1 week prior to admission and has been worsening since onset. She is found to hypoxic to 86% on room air on admission she is unsure if she has had any specific Covid exposures, however she notes her and son have been ill recently. Afebrile with a normal white count. Renal function normal. Procalcitonin normal. Currently on ceftriaxone and azithromycin. No cultures were reviewed. Covid testing pending. Imaging personally reviewed: Chest CTA: No pulmonary embolism, bilateral pneumonia. Hospitalist Physical - Constitutional Vitals: Temp Pulse Resp BP Pulse Ox 97.8 F 94 H 20 163/95 93 06/24/20 05:53 06/24/20 05:53 06/24/20 05:53 06/24/20 05:53 06/24/20 05:53 General appearance: Present: mild distress, obese - EENT Eyes: Present: PERRL, EOM intact ENT: hearing intact, clear oral mucosa, dentition normal - Neck Neck: Present: supple, normal ROM - Respiratory Respiratory effort: normal Respiratory: bilateral: CTA - Cardiovascular Rhythm: regular Heart Sounds: Present: S1 & S2. Absent: gallop, rub - Extremities Extremities: no ischemia, No edema, Full ROM - Abdominal General gastrointestinal: soft, non-tender, non-distended, normal bowel sounds - Integumentary Integumentary: Present: clear, warm, dry - Neurologic Neurologic: CNII-XII intact, moves all extremities Results - Labs CBC & Chem 7: 06/22/20 05:48 06/23/20 08:49 Labs: Laboratory Last Values WBC 6.9 K/mm3 (4.5-11.0) 06/22/20 05:48 RBC 4.40 M/mm3 (3.65-5.03) 06/22/20 05:48 Hgb 12.0 gm/dl (10.1-14.3) 06/22/20 05:48 Hct 36.4 % (30.3-42.9) 06/22/20 05:48 MCV 83 fl (79-97) 06/22/20 05:48 MCH 27 pg (28-32) L 06/22/20 05:48 MCHC 33 % (30-34) 06/22/20 05:48 RDW 14.3 % (13.2-15.2) 06/22/20 05:48 Plt Count 262 K/mm3 (140-440) 06/22/20 05:48 Lymph % (Auto) 8.9 % (13.4-35.0) L 06/22/20 05:48 [place] % (Auto) 4.5 % (0.0-7.3) 06/22/20 05:48 Eos % (Auto) 0.0 % (0.0-4.3) 06/22/20 05:48 Baso % (Auto) 0.3 % (0.0-1.8) 06/22/20 05:48 Lymph # (Auto) 0.6 K/mm3 (1.2-5.4) L 06/22/20 05:48 [place] # (Auto) 0.3 K/mm3 (0.0-0.8) 06/22/20 05:48 Eos # (Auto) 0.0 K/mm3 (0.0-0.4) 06/22/20 05:48 Baso # (Auto) 0.0 K/mm3 (0.0-0.1) 06/22/20 05:48 Seg Neutrophils % 86.3 % (40.0-70.0) H 06/22/20 05:48 Seg Neutrophils # 5.9 K/mm3 (1.8-7.7) 06/22/20 05:48 D-Dimer 855.67 ng/mlDDU (0-234) H 06/23/20 08:49 Sodium 139 mmol/L (137-145) 06/23/20 08:49 Potassium 3.5 mmol/L (3.6-5.0) L 06/23/20 08:49 Chloride 99.1 mmol/L (98-107) 06/23/20 08:49 Carbon Dioxide 27 mmol/L (22-30) 06/23/20 08:49 Anion Gap 16 mmol/L 06/23/20 08:49 BUN 17 mg/dL (7-17) 06/23/20 08:49 Creatinine 0.8 mg/dL (0.6-1.2) 06/23/20 08:49 Estimated GFR > 60 ml/min 06/23/20 08:49 BUN/Creatinine Ratio 21 % 06/23/20 08:49 Glucose 240 mg/dL (65-100) H 06/23/20 08:49 Calcium 9.0 mg/dL (8.4-10.2) 06/23/20 08:49 Ferritin 1505.0 ng/mL (10.0-200.0) H 06/23/20 08:49 Total Bilirubin 0.40 mg/dL (0.1-1.2) 06/23/20 08:49 AST 87 units/L (5-40) H 06/23/20 08:49 ALT 144 units/L (7-56) H 06/23/20 08:49 Alkaline Phosphatase 74 units/L (35-129) 06/23/20 08:49 Lactate Dehydrogenase 422 units/L (91-180) H 06/23/20 08:49 C-Reactive Protein 6.00 mg/dL (0.00-1.30) H 06/23/20 08:49 NT-Pro-B Natriuret Pep 164.0 pg/mL (0-900) 06/21/20 12:16 Total Protein 8.0 g/dL (6.3-8.2) 06/23/20 08:49 Albumin 3.6 g/dL (3.9-5) L 06/23/20 08:49 Albumin/Globulin Ratio 0.8 % 06/23/20 08:49 Procalcitonin 0.08 ng/mL (<0.15) 06/21/20 11:49 Coronavirus (PCR) Positive (Negative) A 06/22/20 Unknown Madden/IV: Voiding Method Toilet Active Medications - Current Medications Current Medications: Generic Name Dose Route Start Last Admin Trade Name Freq PRN Reason Stop Dose Admin Acetaminophen 650 mg 06/21/20 13:26 Acetaminophen 325 Mg Tab PO Q4H PRN Pain MILD(1-3)/Fever >100.5/SMITH Albuterol 2.5 mg 06/21/20 13:26 Albuterol 2.5 Mg/3 Ml Nebu IH Q4HRT PRN Shortness Of Breath Amlodipine Besylate 10 mg 06/22/20 10:00 06/23/20 08:59 Amlodipine 10 Mg Tab PO 10 mg QDAY BROOKS Administration Ascorbic Acid 500 mg 06/21/20 22:00 06/23/20 21:15 Ascorbic Acid 500 Mg Tab PO 500 mg BID BROOKS Administration Cholecalciferol 1,000 unit 06/21/20 15:00 06/23/20 08:59 Cholecalciferol (Vit D3) 1000 Unit (25 Mcg) Tab PO 1,000 unit QDAY BROOKS Administration Dexamethasone 6 mg 06/23/20 10:00 06/23/20 08:59 Dexamethasone 4 Mg Tab PO 07/01/20 10:59 6 mg DAILY BROOKS Administration Famotidine 10 mg 06/21/20 22:00 06/23/20 21:15 Famotidine 10 Mg Tab PO 10 mg BID BROOKS Administration Heparin Sodium (Porcine) 5,000 unit 06/21/20 22:00 06/23/20 21:15 Heparin 5,000 Unit/1 Ml Vial SUB-Q 5,000 unit Q12HR BROOKS Administration Hydralazine HCl 10 mg 06/21/20 17:00 06/23/20 22:03 Hydralazine 20 Mg/1 Ml Inj IV 10 mg Q8H PRN Administration Hypertension Hydrochlorothiazide 12.5 mg 06/22/20 10:00 06/23/20 09:05 Hydrochlorothiazide 12.5 Mg Cap PO 12.5 mg QDAY BROOKS Administration Hydrophilic Ointment 1 applic 06/22/20 12:29 Lip Therapy Vaseline TP DIRECT PRN Dry Lips REMDESIVIR 100 mg/ Sodium 250 mls @ 500 mls/hr 06/24/20 21:00 Chloride IV 06/27/20 21:29 Q24HR@2100 BROOKS Ondansetron HCl 4 mg 06/21/20 13:26 Ondansetron 4 Mg/2 Ml Inj IV Q8H PRN Nausea And Vomiting Sodium Chloride 10 ml 06/21/20 22:00 06/23/20 21:15 Sodium Chloride 0.9% 10 Ml Flush Syringe IV 10 ml BID BROOKS Administration Sodium Chloride 10 ml 06/21/20 13:26 Sodium Chloride 0.9% 10 Ml Flush Syringe IV PRN PRN LINE FLUSH Sodium Chloride 50 ml 06/23/20 16:30 06/23/20 17:04 Sodium Chloride 0.9% 50 Ml Ivpb IV 06/27/20 21:01 50 ml Q24HR@2100 BROOKS Administration Zinc Sulfate 220 mg 06/21/20 22:00 06/23/20 21:15 Zinc Sulfate 220 Mg Cap PO 220 mg BID BROOKS Administration Nutrition/Malnutrition Assess - Dietary Evaluation Nutrition/Malnutrition Findings: Nutrition Notes Start: 06/22/20 10:38 Freq: Status: Active Protocol: Document 06/22/20 10:38 LM (Rec: 06/22/20 10:44 LM [id number]) Nutrition Notes Need for Assessment generated from: MST Initial or Follow up Brief Note Usual Body Weight 90 kg Subjective/Other Information RN screen for MST and Skin risk. Ismael score is 20. Pt stated she is eating well with a good appetite. Pt stated she was not eating well [employer] for 1-2 weeks due to being sick. Pt reported UBW od 198 lb. Food preferences updated. Burn Absent Trauma Absent GI Symptoms None Current % PO Good (75-100%) Minimum of two criteria No Energy Intake (non-severe) <75% Estimated Energy Requirement >7 days Nutrition Intervention Revisit per MD consult or patient Sign Off request:
[2020-06-24 08:34] LABS: Alanine Aminotransferase 111 units/L (7-56); Albumin 3.1 g/dL (3.9-5); Blood Urea Nitrogen 16 mg/dL (7-17); Calcium 8.4 mg/dL (8.4-10.2); Hemolysis Index 4
[2020-06-24 08:40] LABS: BUN/Creatinine Ratio 23
[2020-06-24] MEDS: HEPARIN 5,000 UNIT/1 ML VIAL SUB-Q SCH ×2 (10:06→21:00)
[2020-06-24] MEDS: ASCORBIC ACID 500 MG TAB PO SCH ×2 (10:06→21:00)
[2020-06-24] MEDS: CHOLECALCIFEROL (VIT D3) 1000 UNIT (25 mcg) TAB PO SCH (10:06)
[2020-06-24] MEDS: ZINC SULFATE 220 MG CAP PO SCH ×2 (10:06→21:00)
[2020-06-24] MEDS: FAMOTIDINE 20 MG TAB PO SCH ×2 (10:06→21:00)
[2020-06-24] MEDS: DEXAMETHASONE 4 MG TAB PO SCH (10:06)
[2020-06-24] MEDS: amLODIPine 10 MG TAB PO SCH (10:12)
[2020-06-24] MEDS: hydroCHLOROthiazide 12.5 MG CAP PO SCH (10:12)
--- NOTE | 2020-06-24 11:03 | Progress Note ---
Assessment and Plan Cultures: SARS CoV2 PCR: Positive A/P: 55-year-old female with hypertension : #Bilateral pneumonia: Secondary to COVID-19. CTA negative for PE, showed bilateral pneumonia. Labs revealed normal WBC, ferritin 1421, CRP 15.6, LDH 527, procalcitonin 0.08. #Acute hypoxic respiratory failure: On supplemental oxygen. Recs: -continue IV/PO Dexamethasone 6 mg daily x 10 days -IV remdesivir ordered. D2 of 5. -prophylactic anticoagulation based on d-dimer per hospital protocol -trend ferritin, LDH, d-dimer, CRP every 2-3 days for risk stratification and to assess disease progression Steve Dumas MD [facility] ([facility]) O: [phone] F: [phone] Subjective Date of service: 06/24/20 Interval history: Afebrile, remains tachycardic. Normal white count. Objective - Exam Narrative Exam: Physical exam deferred due to PPE conservation strategy. Please refer to primary team's note. - Constitutional Vitals: Vital Signs Temp Pulse Resp BP Pulse Ox 97.8 F 96 H 20 152/98 93 06/24/20 05:53 06/24/20 10:12 06/24/20 05:53 06/24/20 10:12 06/24/20 05:53 Temperature -Last 24 Hours Temperature 97.8 F Temperature 98.2 F Temperature 98.2 F Temperature 98.6 F - Labs CBC & Chem 7: 06/22/20 05:48 06/24/20 07:00 Labs: Abnormal lab results 06/24/20 Range/Units 07:00 Potassium 3.4 L (3.6-5.0) mmol/L Glucose 133 H (65-100) mg/dL AST 45 H (5-40) units/L ALT 111 H (7-56) units/L Albumin 3.1 L (3.9-5) g/dL
[2020-06-24] MEDS: hydrALAZINE 20 MG/1 ML INJ IV PRN (20:53)
[2020-06-24] MEDS ORDERED: REMDESIVIR 100 MG in SODIUM CHLORIDE 0.9% 250ML 250 ML IV SCH (21:00)
[2020-06-24] MEDS: SODIUM CHLORIDE 0.9% 50 ML IVPB IV SCH (21:01)
[2020-06-25 05:36] LABS: Hematocrit 35.6 % (30.3-42.9); Hemoglobin 11.7 gm/dl (10.1-14.3); Mean Corpuscular HGB Conc 33 % (30-34); Mean Corpuscular Volume 83 fl (79-97); Platelet Count 319 K/mm3 (140-440); Red Blood Count 4.31 M/mm3 (3.65-5.03); Red Cell Distribution Width 14.3 % (13.2-15.2)
[2020-06-25 05:40] LABS: Basophils % (Auto) 0.3 % (0.0-1.8); Lymphocytes # (Auto) 1.5 K/mm3 (1.2-5.4); Lymphocytes % (Auto) 18.2 % (13.4-35.0); Monocytes % (Auto) 11.7 % (0.0-7.3)
[2020-06-25 05:57] LABS: Alanine Aminotransferase 95 units/L (7-56); Albumin 3.1 g/dL (3.9-5); BUN/Creatinine Ratio 21; Blood Urea Nitrogen 17 mg/dL (7-17); Calcium 8.4 mg/dL (8.4-10.2); Hemolysis Index 2
[2020-06-25] MEDS ORDERED: POTASSIUM CHLORIDE ER 20 MEQ TAB PO NR (08:00)
[2020-06-25] MEDS: ZINC SULFATE 220 MG CAP PO SCH (09:48)
[2020-06-25] MEDS: amLODIPine 10 MG TAB PO SCH (09:48)
[2020-06-25] MEDS: ASCORBIC ACID 500 MG TAB PO SCH (09:48)
[2020-06-25] MEDS: FAMOTIDINE 20 MG TAB PO SCH (09:48)
[2020-06-25] MEDS: CHOLECALCIFEROL (VIT D3) 1000 UNIT (25 mcg) TAB PO SCH (09:48)
[2020-06-25] MEDS: hydroCHLOROthiazide 12.5 MG CAP PO SCH (09:48)
[2020-06-25] MEDS: DEXAMETHASONE 4 MG TAB PO SCH (09:48)
[2020-06-25] MEDS: HEPARIN 5,000 UNIT/1 ML VIAL SUB-Q SCH (09:53)
[2020-06-25] MEDS: POTASSIUM CHLORIDE 10 MEQ 10 MEQ/100 ML BAG IV SCH ×4 (09:54→13:54)
[2020-06-25] MEDS ORDERED: VALSARTAN 40 MG TAB PO SCH (10:00)
--- NOTE | 2020-06-25 10:33 | Progress Note ---
Assessment and Plan Cultures: SARS CoV2 PCR: Positive A/P: 55-year-old female with hypertension : #Bilateral pneumonia: Secondary to COVID-19. CTA negative for PE, showed bilateral pneumonia. Labs revealed normal WBC, ferritin 1421, CRP 15.6, LDH 527, procalcitonin 0.08. #Acute hypoxic respiratory failure: On supplemental oxygen. Recs: -continue IV/PO Dexamethasone 6 mg daily x 10 days -IV remdesivir ordered. D3 of 5. -prophylactic anticoagulation based on d-dimer per hospital protocol -trend ferritin, LDH, d-dimer, CRP every 2-3 days for risk stratification and to assess disease progression Okay to discharge from infectious disease perspective. If the patient is stable, no need to stay to complete 5-day course of remdesivir. Steve Dumas MD [facility] ([facility]) O: [phone] F: [phone] Subjective Date of service: 06/25/20 Interval history: Afebrile, normal white count. On room air. Objective - Exam Narrative Exam: Physical exam deferred due to PPE conservation strategy. Please refer to primary team's note. - Constitutional Vitals: Vital Signs Temp Pulse Resp BP Pulse Ox 97.9 F 99 H 17 146/92 95 06/25/20 03:57 06/25/20 09:51 06/25/20 03:57 06/25/20 09:51 06/25/20 03:57 Temperature -Last 24 Hours Temperature 97.9 F Temperature 97.9 F Temperature 97.9 F Temperature 98.6 F Temperature 98.4 F - Labs CBC & Chem 7: 06/25/20 04:42 06/25/20 04:42 Labs: Abnormal lab results 06/25/20 06/25/20 Range/Units 04:42 04:42 MCH 27 L (28-32) pg [place] % (Auto) 11.7 H (0.0-7.3) % [place] # (Auto) 1.0 H (0.0-0.8) K/mm3 Potassium 3.0 L (3.6-5.0) mmol/L Carbon Dioxide 31 H (22-30) mmol/L Glucose 140 H (65-100) mg/dL ALT 95 H (7-56) units/L Albumin 3.1 L (3.9-5) g/dL
[2020-06-25] MEDS ORDERED: SODIUM CHLORIDE 0.9% 500 ML 500 ML IV SCH (11:00)
--- NOTE | 2020-06-25 11:43 | Discharge Summary ---
Providers - Providers Date of Admission: 06/21/20 13:26 Date of discharge: 06/25/20 Attending physician: YARY DIOR 06/21/20 16:11 Consult to Physician [CONS] Routine Comment: Consulting Provider: MIKA GIPSON Physician Instructions: Reason For Exam: PUI Primary care physician: RICHARD VOSS Hospitalization Condition: Stable Hospital course: 55-year-old female past medical history obesity, hypertension brought to the hospital with shortness of breath. She also complains of associated malaise, fevers, fatigue, myalgias, dysgeusia and anosmia. This began approximate 1 week prior to admission and has been worsening since onset. She is found to hypoxic to 86% on room air on admission she is unsure if she has had any specific Covid exposures, however she notes her and son have been ill recently. 06/22/2020. Follow-up Covid PCR. If Covid positive and hypoxic, we will start dexamethasone and remdesivir. ID consulted and stopped empiric antibiotics given normal procalcitonin. Trend inflammatory markers as needed. 06/23/2020. Covid PCR positive on 06/21/2020. Continue dexamethasone. Patient not hypoxic so holding on remdesivir. Empiric antibiotics discontinued because of normal procalcitonin. Check exercise pulse oximetry today. Anticoagulation per protocol. 06/24/2020. Continue dexamethasone and consider adding remdesivir per ID. Patient does exhibit mild hypoxia with exercise pulse oximetry. All markers show improvement except ferritin. Continue to trend inflammatory markers of ferritin, LDH, D-dimer and CRP. CTA negative for PE. 06/25/2020. Patient remains stable. Not hypoxic. She will have walk test today. She will complete dexamethasone at home. Disposition: DC-01 TO HOME OR SELFCARE Time spent for discharge: 40 mins - Discharge Diagnoses (1) Pneumonia due to COVID-19 virus Status: Acute (2) Acute respiratory failure with hypoxia Status: Acute (3) Hypertension Status: Acute (4) Multifocal pneumonia Status: Acute Core Measure Documentation - Palliative Care Palliative Care/ Comfort Measures: Not Applicable - Core Measures Any of the following diagnoses?: none Exam - Constitutional Vitals: Temp Pulse Resp BP Pulse Ox 97.9 F 99 H 17 146/92 95 06/25/20 03:57 06/25/20 09:51 06/25/20 03:57 06/25/20 09:51 06/25/20 03:57 General appearance: Present: no acute distress, well-nourished - EENT Eyes: Present: PERRL ENT: hearing intact, clear oral mucosa - Neck Neck: Present: supple, normal ROM - Respiratory Respiratory effort: normal Respiratory: bilateral: CTA - Cardiovascular Heart Sounds: Present: S1 & S2. Absent: rub, click - Extremities Extremities: pulses symmetrical, No edema Peripheral Pulses: within normal limits - Abdominal General gastrointestinal: Present: soft, non-tender, non-distended, normal bowel sounds Female genitourinary: Present: normal - Integumentary Integumentary: Present: clear, warm, dry - Musculoskeletal Musculoskeletal: gait normal, strength equal bilaterally - Psychiatric Psychiatric: appropriate mood/affect, intact judgment & insight - Neurologic Neurologic: CNII-XII intact, moves all extremities Plan Additional Instructions: Complete dexamethasone as ordered. Continue BP medications as prescribed. Follow up with PCP in 2 weeks. Continue self quarantine for 2 weeks Follow up with: RICHARD VOSS JR, MD [Primary Care Provider] - 3-5 Days Prescriptions: amLODIPine 10 mg PO QDAY #30 tablet dexAMETHasone [Dexamethasone] 6 mg PO DAILY #7 tablet Valsartan [Diovan] 40 mg PO QDAY #30 tablet Ascorbic Acid [Vitamin C] 500 mg PO DAILY #14 tablet Cholecalciferol Vit D3 [Vitamin D3 1,000 UNIT TAB] 1,000 unit PO QDAY #30 tablet Zinc Sulfate 220 mg PO DAILY #14 capsule
[2020-06-25 16:18] VITALS: BP 138/90
== END 2020-06-25 15:46 | disposition home or self-care (01) | DRG 177 ==
LOC: ED 09:53 → 3A 13:26
PROVIDERS: ADMIT Internal Medicine; ATTEND Internal Medicine
PROC: XW033E5 Introduction of Remdesivir Anti-infective into Peripheral Vein, Percutaneous Approach, New Technology Group 5 (ICD-10-PCS; principal; 2020-06-23)
DX: U07.1 COVID-19 (principal); J96.01 Acute respiratory failure with hypoxia; J12.82 Pneumonia due to coronavirus disease 2019; E66.2 Morbid (severe) obesity with alveolar hypoventilation; I16.0 Hypertensive urgency; Z20.822 Contact with and (suspected) exposure to COVID-19; Z68.31 Body mass index [BMI] 31.0-31.9, adult; Z71.3 Dietary counseling and surveillance; Z91.19 Patient's noncompliance with other medical treatment and regimen; Z83.3 Family history of diabetes mellitus; Z82.49 Family history of ischemic heart disease and other diseases of the circulatory system
CPT/HCPCS: 36415; 71046; 71275; 80048; 80053; 82728; 83520; 83615; 83880; 84145; 85025; 85379; 86140; 93005; 94640; 94760; 96365; 96367; 96375; G0378; J0360; J0456; J0696; J1100; J1644; J2920; J3480; J7040; J8540; Q9967; U0003